=== PATIENT | female | born 1995 | race Two or more races ===

== ENCOUNTER 2019-10-02 13:20 | Observation (INO) | payer MEDICAID ==
[2019-10-02 14:00] LABS: Urine Bacteria FEW /hpf (None Seen); Urine Blood TRACE /uL (Negative); Urine Mucus FEW (None Seen); Urine Specific Gravity 1.022 (1.001-1.035); Urine WBC 226 /hpf (0 - 5)
== END 2019-10-02 14:52 | disposition home or self-care (01) | DRG 566 ==
LOC: LDRP 13:20
PROVIDERS: ADMIT Obstetrics & Gynecology; ATTEND Obstetrics & Gynecology
DX: O23.40 Unspecified infection of urinary tract in pregnancy, unspecified trimester (principal); R10.9 Unspecified abdominal pain; Z3A.00 Weeks of gestation of pregnancy not specified
CPT/HCPCS: 59025; 81001; 81002; 87086; G0378; 87088; 87186